=== PATIENT | male | born 1980 | race Caucasian/White ===

== ENCOUNTER 2018-05-27 14:31 | Emergency (ER) | payer BC, OTHER ==
[2018-05-27] MEDS ORDERED: Cyclobenzaprine 10 MG Tab ONE (14:45)
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
== END 2018-05-27 15:57 | disposition home or self-care (01) ==
LOC: LB.ED 14:31
DX: S06.0X0A Concussion without loss of consciousness, initial encounter (principal); S20.211A Contusion of right front wall of thorax, initial encounter; V86.92XA Unspecified occupant of snowmobile injured in nontraffic accident, initial encounter
CPT/HCPCS: 70450; 71250; 74176; 99284; A9270